=== PATIENT | female | born 1975 | race Caucasian/White ===

== ENCOUNTER 2018-11-06 15:19 | Emergency (ER) | payer SELFPAY ==
[~2018-11-06] VITALS: Ht 160 cm; Wt 99.8 kg
[2018-11-06] MEDS ORDERED: MECLIZINE HCL25 MG PO (17:14)
--- NOTE | 2018-11-07 09:19 | EKG ---
[facility] [address] [place], [place] [address] Signed Sinus tachycardia Otherwise normal ECG No previous ECGs available Confirmed by ÁLVARO LAMBERT MD ([id number] on 11/07/2018 9:19:02 AM Electronically Signed By: ÁLVARO LAMBERT MD 11/07/18918 PATIENT NAME: CHARLES ANDRES Electrocardiogram DATE OF : 79 PHYSICIAN: ÁLVARO LAMBERT MD REPORT #: [id number] REPORT IS CONFIDENTIAL AND NOT TO BE RELEASED WITHOUT AUTHORIZATION
== END 2018-11-06 17:24 | disposition home or self-care (01) ==
LOC: ED 15:19
DX: R42 Dizziness and giddiness (principal); F17.200 Nicotine dependence, unspecified, uncomplicated; Z91.013 Allergy to seafood
CPT/HCPCS: 71045; 80053; 83735; 84484; 85025; 93005; 93010; 99284-25